=== PATIENT | male | born 1985 | race Caucasian/White ===

== ENCOUNTER 2017-06-18 07:49 | Emergency (ER) | payer OTHER ==
[~2017-06-18] VITALS: Ht 180.3 cm; Wt 110.0 kg
[2017-06-18] MEDS ORDERED: FLEXERIL10 MG PO (08:02)
[2017-06-18] MEDS ORDERED: MOTRIN800 MG PO (08:02)
[2017-06-18 08:53] VITALS: BP 116/90
== END 2017-06-18 08:50 | disposition home or self-care (01) ==
LOC: EME 07:49
DX: S60.512A Abrasion of left hand, initial encounter (principal); M79.5 Residual foreign body in soft tissue; Z18.81 Retained glass fragments; V48.0XXA Car driver injured in noncollision transport accident in nontraffic accident, initial encounter; Y92.411 Interstate highway as the place of occurrence of the external cause
CPT/HCPCS: 73130; 99281; 99282